=== PATIENT | male | born 1955 | race Caucasian/White ===

== ENCOUNTER 2019-04-05 18:06 | Emergency (ER) | payer BC ==
[~2019-04-05] VITALS: Ht 172.7 cm; Wt 102.3 kg
[~2019-04-05 18:06] MED LIST: AZOR PO; LEXAPRO; LEXAPRO 10MG10 MG PO
[2019-04-05 18:11] VITALS: TEMP 99.5
[2019-04-05 18:56] LABS: BASO # 0.1 (0.0-0.2); BASO % 0.5 % (0.0-2.0); EOS # 0.1 (0.0-0.7); EOS % 0.7 % (0-4.0); GRAN # 7.6 (1.4-6.5); GRAN % 67.6 % (42.2-75.2); HEMATOCRIT 42.7 % (42.0-52.0); HEMOGLOBIN 15.5 g/dl (13.5-18.0); LYMPH # 2.5 (1.2-3.4); LYMPH % 22.3 % (20.0-51.0); MEAN CELL VOLUME 89 fl (80.0-100.0); MEAN CORPUSCULAR HEMOGLOBIN 32 pg (27.0-31.0); MEAN CORPUSCULAR HGB CONC 36 g/dl (33.0-37.0); MEAN PLATELET VOLUME 10.1 fl (7.4-10.4); MONO % 8.5 % (1.7-9.3); PLATELET COUNT 227 K/mm3 (130-400); RED BLOOD COUNT 4.78 M/mm3 (4.20-5.60); REDCELL DISTRIBUTION WIDTH-CV 12.1 % (11.5-14.5)
[2019-04-05 19:03] LABS: INR 0.9 (0.8-3.0); PROTHROMBIN TIME 10.4 SECONDS (9.7-12.8)
[2019-04-05 19:07] LABS: D-DIMER < 200.00 ng/mLDDu (200-230)
[2019-04-05 19:09] LABS: ALANINE AMINOTRANSFERASE 53 U/L (21-72); ALBUMIN 4.5 gm/dL (3.5-5.0); ALKALINE PHOSPHATASE 48 U/L (50-136); ANION GAP 14 mmol/L (7-16); AST,SGOT 49 U/L (15-37); BILIRUBIN,TOTAL 0.5 mg/dL (0.0-1.0); BLOOD UREA NITROGEN 14 mg/dL (9-20); CALCIUM 9.2 mg/dL (8.4-10.2); CARBON DIOXIDE 22 mmol/L (22-30); CHLORIDE 98 mmol/L (98-107); CREATININE, serum 0.93 (0.66-1.25); GLUCOSE 94 mg/dL (74-106); POTASSIUM 4.1 mmol/L (3.4-5.0); SODIUM 135 mmol/L (137-145); TOTAL PROTEIN 7.5 gm/dL (6.4-8.2)
[2019-04-05 19:21] LABS: TROPONIN-I < 0.012 ng/mL (0.000-0.035)
[2019-04-05 19:40] VITALS: BP 136/89
[2019-04-05 20:01] VITALS: PULSE 93
== END 2019-04-05 20:01 | disposition left against medical advice (07) ==
LOC: COL.ER 18:06
PROVIDERS: Emergency Medicine
DX: R55 Syncope and collapse (principal); I10 Essential (primary) hypertension; F17.220 Nicotine dependence, chewing tobacco, uncomplicated

== ENCOUNTER 2021-09-13 10:59 | Emergency (ER) | payer BC ==
[~2021-09-13] VITALS: Ht 157.5 cm; Wt 59.1 kg
[2021-09-13 11:43] VITALS: TEMP 98.4
[2021-09-13] MEDS ORDERED: CEPHALEXIN500 M1 PO (12:43)
[2021-09-13 13:26] VITALS: BP 145/101; PULSE 72
== END 2021-09-13 13:26 | disposition home or self-care (01) ==
LOC: COL.ER 10:59
DX: S56.021A Laceration of flexor muscle, fascia and tendon of right thumb at forearm level, initial encounter (principal); W26.0XXA Contact with knife, initial encounter

== ENCOUNTER → 2021-11-18 | Outpatient (RCR) | payer BC ==
[~2021-11-18] MED LIST changes: +CEPHALEXIN500 M1 PO
== END ==
LOC: WSOT
DX: S66.021D Laceration of long flexor muscle, fascia and tendon of right thumb at wrist and hand level, subsequent encounter (principal); X58.XXXD Exposure to other specified factors, subsequent encounter

== ENCOUNTER 2021-11-29 10:00 | Outpatient (RCR) | payer BC | END 2021-12-18 | disposition home or self-care (01) | LOC: WSOT | DX: S66.021D Laceration of long flexor muscle, fascia and tendon of right thumb at wrist and hand level, subsequent encounter (principal); X58.XXXD Exposure to other specified factors, subsequent encounter ==